=== PATIENT | female | born 1945 | race Caucasian/White ===

== ENCOUNTER 2021-08-14 09:12 | Emergency (ER) | payer MEDICARE, OTHER ==
[~2021-08-14] VITALS: Ht 160 cm; Wt 72.6 kg
[~2021-08-14 09:12] MED LIST: 8 HOUR650 MG PO; ATORVASTATIN CA40 MG PO; AZITHROMYCIN250 MG PO; AZULFIDINE500 M1 PO; BEVESPI AEROS10.7 GM INH; BISOPROLOL-HCT1 EAC1 PO; CEFDINIR300 MG PO; ELAVIL25 MG PO; FOLIC ACID1 M1 PO; GABAPENTIN300 MG PO; LEVOTHYROXINE125 MCG PO; MONTELUKAST SOD10 MG PO; PREDNISONE5 MG PO; PULMICORT0.5 MG/2 M INH; VENTOLIN (2.5 MG/3 M INH; VITAMIN D325 MC1 PO; [UNRECOGNIZED DRUG - OTHER] IV
[2021-08-14 10:06] LABS: BILIRUBIN NEGATIVE (NEGATIVE); BLOOD NEGATIVE Ery/uL (NEGATIVE); CLARITY CLEAR (CLEAR); COLOR YELLOW (YELLOW); GLUCOSE (U) TRACE mg/dL (NORMAL); LEUKOCYTES NEGATIVE Leu/uL (NEGATIVE); NITRITE NEGATIVE (NEGATIVE); PROTEIN TRACE (LOW) mg/dL (NEGATIVE); SPECIFIC GRAVITY 1.015 (1.001-1.030); UROBILINOGEN 0.2 mg/dL (0.2-1.0); pH 6.5 (5.0-9.0)
[2021-08-14 10:18] LABS: BACTERIA TRACE; TRANSITIONAL EPITHELIAL CELLS RARE
[2021-08-14 10:19] LABS: URIC ACID CRYSTALS MODERATE
[2021-08-14 10:46] LABS: BASOPHIL 0.6 % (0-2); EOSINOPHIL 0.1 % (0-7); HCT 34.9 % (37.0-47.0); HGB 10.1 g/dl (12.5-16.0); LYMPHOCYTE 9.8 % (15-48); MCHC 28.9 g/dL (32.0-36.0); MCV 100.3 fL (78.0-100.0); MONOCYTE 8.1 % (0-12); NEUTROPHIL 80.9 % (41-80); NRBC 0; PLT 260 K/uL (150-400); RBC 3.48 M/uL (4.20-5.40); RDW 14.8 % (11.5-14.0); WBC 10.3 K/uL (4.0-10.5)
[2021-08-14 10:57] LABS: BUN/CREAT RATIO (CALC) 17.9 RATIO; CREATININE 0.67 mg/dL (0.51-0.95)
[2021-08-14 11:07] LABS: LACTIC ACID 1.6 mmol/L (0.4-1.9)
[2021-08-14] MEDS ORDERED: NAPROSYN375 MG PO (12:11)
[2021-08-14] MEDS ORDERED: CITRATE OF MAG296 ML PO (12:12)
== END 2021-08-14 13:01 | disposition home or self-care (01) ==
LOC: FER 09:12
PROVIDERS: Emergency Medicine
DX: M54.50 Low back pain, unspecified (principal); K59.00 Constipation, unspecified; I10 Essential (primary) hypertension; J44.9 Chronic obstructive pulmonary disease, unspecified; Z87.891 Personal history of nicotine dependence; Z88.6 Allergy status to analgesic agent
CPT/HCPCS: 36415; 71046; 72110; 80048; 81001; 83605; 85025

== ENCOUNTER → 2021-10-12 | Day surgery (SDC) | payer MEDICARE, OTHER ==
[~2021-10-12] VITALS: Ht 160 cm; Wt 74.8 kg
[~2021-10-12] MED LIST changes: +BREO ELLIPTA 11 EACH INH; +CITRATE OF MAG296 ML PO; +DUONEB 2.5-0.5M1 AMP NEB; +NAPROSYN375 MG PO
== END | disposition home or self-care (01) ==
LOC: FAS 09:30
DX: D64.9 Anemia, unspecified (principal); K59.09 Other constipation; K29.50 Unspecified chronic gastritis without bleeding; B96.81 Helicobacter pylori [H. pylori] as the cause of diseases classified elsewhere; K44.9 Diaphragmatic hernia without obstruction or gangrene; K25.9 Gastric ulcer, unspecified as acute or chronic, without hemorrhage or perforation; K31.7 Polyp of stomach and duodenum; K57.30 Diverticulosis of large intestine without perforation or abscess without bleeding; R07.89 Other chest pain; J44.9 Chronic obstructive pulmonary disease, unspecified; I10 Essential (primary) hypertension; E78.00 Pure hypercholesterolemia, unspecified; Z86.010 Personal history of colon polyps; Z99.81 Dependence on supplemental oxygen; Z79.52 Long term (current) use of systemic steroids; Z87.891 Personal history of nicotine dependence
CPT/HCPCS: 74270; J1610; J2704; J7120